=== PATIENT | female | born 1990 ===

== ENCOUNTER 2019-02-19 04:14 | Inpatient (IN) ==
[2019-02-19] MEDS ORDERED: ONDANSETRON 4 MG/2 ML VIAL IV PRN ×2 (04:39→06:28)
[2019-02-19] MEDS ORDERED: BUTORPHANOL 2 MG/ML VIAL IV PRN (04:39)
[2019-02-19] MEDS ORDERED: MEPERIDINE 50 MG/1 ML VIAL IV PRN (04:39)
[2019-02-19] MEDS ORDERED: OXYTOCIN/LR 30 UNIT/1,000 ML BAG IV ONE (04:41)
[2019-02-19] MEDS ORDERED: AMPICILLIN INJ 2,000 MG in SODIUM CHLORIDE 0.9% 100 ML IV ONE (04:41)
[2019-02-19] MEDS ORDERED: SODIUM CHLORIDE 0.9% 0 ML IV ONE (04:42)
[2019-02-19] MEDS ORDERED: AMPICILLIN 2,000 MG VIAL ONE (04:42)
[2019-02-19] MEDS ORDERED: miSOPROStol 200 MCG TABLET ONE (04:44)
[2019-02-19] MEDS ORDERED: LIDOCAINE 1% 50 ML VIAL ONE (04:44)
[2019-02-19] MEDS ORDERED: LACTATED RINGERS 1,000 ML IV SCH (05:00)
[2019-02-19 05:08] LABS: Basophils % 0.2 % (0.0-0.8); Eosinophils # 0.1 10*3/uL (0.0-0.87); Eosinophils % 0.4 % (0.00-10.9); Hematocrit 32.6 VOL% (35.7-47.0); Hemoglobin 10.6 GM/DL (12.0-16.0); Immature Granulocytes % 0.7 %; Immature Granulocytes Absolute 0.09 #; Lymphocytes # 2.9 10*3/uL (1.4-4.0); Mean Corpuscular HGB Conc 32.5 GM/DL (32-36); Mean Corpuscular Volume 89.8 FL (87-102); Mean Platelet Volume 10.9 FL (9.6-12.0); Monocytes % 6.3 % (1.7-12.7); Neutrophils % 68.4 % (38.7-73.9); Platelet Count 243 T/CUMM (130-400); Red Blood Count 3.63 MC/CUMM (3.8-5.5); Red Cell Distribution Width 13.2 % (9.3-17.3); White Blood Count 12.2 T/CUMM (4-12)
[2019-02-19 05:19] LABS: Albumin 2.4 G/DL (3.4-5.0); Bilirubin,Total 1.1 MG/DL (0.2-1.0); Calcium 8.3 MG/DL (8.5-10.1); Osmolality,Calculated 275.4 MOS/KG (273-304); Total Protein 6.4 G/DL (6.4-8.3)
[2019-02-19] MEDS ORDERED: METHYLERGONOVINE 0.2 MG/1 ML AMP IM ONE (06:09)
[2019-02-19] MEDS ORDERED: METHYLERGONOVINE 0.2 MG/1 ML AMP ONE (06:10)
[2019-02-19 06:19] LABS: Cord Arterial Blood HCO3 25.3 MMOL/L
[2019-02-19 06:20] LABS: Cord Venous Blood HCO3 21.2 MMOL/L; Cord Venous Blood PCO2 45.5 MMHG; Cord Venous Blood PO2 26.9
[2019-02-19] MEDS ORDERED: LANOLIN 50% CREAM 0.3 OZ TUBE TOP PRN (06:28)
[2019-02-19] MEDS ORDERED: RHO(D) IMMUNE GLOBULIN 300 MCG SYRINGE IM ONE (06:28)
[2019-02-19] MEDS ORDERED: MEASLES/MUMPS/RUBELLA VACCINE 0.5 ML VIAL SUBCUT ONE (06:28)
[2019-02-19] MEDS ORDERED: oxyCODONE/ACETAMINOPHEN 5-325 MG TABLET PO PRN ×2 (06:28)
[2019-02-19] MEDS ORDERED: OXYTOCIN/LR 20 UNIT/1,000 ML BAG IV ONE (06:28)
[2019-02-19] MEDS ORDERED: BENZOCAINE 20%/MENTHOL 0.5% SPRAY 56 GM CAN TOP PRN (06:28)
[2019-02-19] MEDS ORDERED: WITCH HAZEL PADS 100/JAR TOP PRN (06:28)
[2019-02-19] MEDS ORDERED: HYDROCORTISONE 2.5% RECTAL CREAM 30 GM TUBE TOP PRN (06:28)
[2019-02-19] MEDS ORDERED: BISACODYL 10 MG SUPP RECTAL PRN (06:28)
[2019-02-19] MEDS ORDERED: DIPH/TET/ACEL PERT BOOSTER VACCINE 0.5 ML VIAL IM ONE (06:28)
[2019-02-19] MEDS ORDERED: ACETAMINOPHEN 325 MG TABLET PO PRN (06:28)
[2019-02-19] MEDS: IBUPROFEN 800 MG TABLET PO PRN (08:32)
[2019-02-19] MEDS: DOCUSATE SODIUM 100 MG CAPSULE PO SCH ×2 (08:32→21:16)
[2019-02-19] MEDS: FERROUS SULFATE 325 MG TABLET PO SCH (21:16)
[2019-02-20] MEDS: IBUPROFEN 800 MG TABLET PO PRN ×2 (00:11→15:51)
[2019-02-20 05:35] LABS: Basophils % 0.2 % (0.0-0.8); Eosinophils # 0.1 10*3/uL (0.0-0.87); Eosinophils % 0.8 % (0.00-10.9); Hemoglobin 9.2 GM/DL (12.0-16.0); Immature Granulocytes % 0.5 %; Immature Granulocytes Absolute 0.06 #; Lymphocytes # 2.7 10*3/uL (1.4-4.0); Lymphocytes % 21.7 % (21.3-54.2); Mean Corpuscular HGB Conc 32.9 GM/DL (32-36); Mean Corpuscular Volume 89.2 FL (87-102); Mean Platelet Volume 10.5 FL (9.6-12.0); Monocytes % 9.5 % (1.7-12.7); Neutrophils % 67.3 % (38.7-73.9); Platelet Count 196 T/CUMM (130-400); Red Blood Count 3.14 MC/CUMM (3.8-5.5); Red Cell Distribution Width 13.2 % (9.3-17.3); White Blood Count 12.3 T/CUMM (4-12)
[2019-02-20] MEDS: DOCUSATE SODIUM 100 MG CAPSULE PO SCH (08:50)
[2019-02-20] MEDS: FERROUS SULFATE 325 MG TABLET PO SCH (08:50)
[2019-02-20 16:02] VITALS: BP 113/67
== END 2019-02-20 18:45 | disposition home or self-care (01) | DRG 560 ==
LOC: N.LDOUT 04:14 → N.LD 04:15 → N.OB 10:58
PROVIDERS: ADMIT Obstetrics & Gynecology; ATTEND Obstetrics & Gynecology